=== PATIENT | female | born 1965 | race African-American/Black ===

== ENCOUNTER 2019-01-03 22:05 | Emergency (ER) | payer SELFPAY ==
[2019-01-03 22:17] VITALS: BP 127/71; PULSE 80; TEMP 98.2; BMI 30.9
[2019-01-03] MEDS ORDERED: KETOROLAC TROMETHAMINE 30 MG/1 ML VIAL IM ONE (23:26)
--- NOTE | 2019-01-03 23:29 | PDOC ---
History of Present Illness - General Chief Complaint: Back Pain Stated Complaint: BACK PAINS Time Seen by Provider: 01/03/19 22:41 History Source: Patient Exam Limitations: No Limitations - History of Present Illness Initial Comments: 01/03/19 23:26 HISTORY OF PRESENT ILLNESS: This is a 53-year-old woman past medical history of hypothyroidism who presents emergency department for evaluation of upper back pain for the past 3 days. 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 Patient reports having symptoms starting on that same day. Patient has been using [id number] treatments which have helped alleviate her symptoms. Patient now has worsening upper back pain which worsens with cough and movement of her right arm. She denies any chest pain or shortness of breath. No recent travel. PAST MEDICAL HISTORY: see HPI SURGICAL HISTORY: Denies ALLERGIES: No known drug allergies REVIEW OF SYSTEMS General/Constitutional: Denies fever or chills. Denies weakness, weight change. HEENT: Denies change in vision. Denies ear pain or discharge. Denies sore throat. Cardiovascular: Denies chest pain or shortness of breath. Respiratory: Dry cough. Denies wheezing, or hemoptysis. Gastrointestinal: Denies nausea, vomiting, diarrhea or constipation. Denies rectal bleeding. Genitourinary: Denies dysuria, frequency, or change in urination. Musculoskeletal: Denies joint or muscle swelling or pain. Denies neck pain. (+) right upper back pain. Skin and breasts: Denies rash or easy bruising. Neurologic: Denies headache, vertigo, loss of consciousness, or loss of sensation. Psychiatric: Denies depression or anxiety. Endocrine: Denies increased thirst. Denies abnormal weight change. Hematologic/Lymphatic: Denies anemia, easy bleeding, or history of blood clots. Allergic/Immunologic: Denies hives or skin allergy. Denies latex allergy. PHYSICAL EXAM General Appearance: Well-appearing, appropriately dressed. No apparent distress , no intoxication. HEENT: EOMI, PERRLA, normal ENT inspection, normal voice, TMs normal, pharynx normal. No conjunctival pallor. No photophobia, scleral icterus. Neck: Supple. Trachea midline. No tenderness, rigidity, carotid bruit, stridor , lymphadenopathy, or thyromegaly. Respiratory/Chest: Lungs CTAB. No shortness of breath, chest tenderness, respiratory distress, accessory muscle use. No crackles, rales, rhonchi, stridor , wheezing, dullness Cardiovascular: RRR. S1, S2. No JVD, murmur, bradycardia, tachycardia. Vascular Pulses: Dorsalis-Pedis (R): 2+, Dorsalis-Pedis (L): 2+ Gastrointestinal/Abdominal: Normal bowel sounds. Abdomen soft, non-distended. No tenderness or rebound tenderness. No organomegaly, pulsatile mass, guarding, hernia, hepatomegaly, splenomegaly. Lymphatic: No adenopathy, tenderness. Musculoskeletal/Extremities: Normal inspection. FROM of all extremities, normal capillary refill. Pelvis Stable. No CVA tenderness. No tenderness to extremities, pedal edema, swelling, erythema or deformity. Palpable muscle spasm present to trapezius muscle over 8th ICS. Integumentary: Appropriate color, dry, warm. No cyanosis, erythema, jaundice or rash Neurologic: culinary arts teacher II-XII intact. Fully oriented, alert. Appropriate mood/affect. Motor strength 5/5. No appreciable EOM palsy, facial droop or sensory deficit. Past History - Past Medical History Allergies/Adverse Reactions: Allergies Allergy/AdvReac Type Severity Reaction Status Date / Time No Known Allergies Allergy Verified 01/03/19 22:16 Home Medications: Ambulatory Orders Methocarbamol [Robaxin -] 1,500 mg PO Q8H PRN #30 tablet 01/04/19 COPD: No Other medical history: denies - Immunization History Immunization Up to Date: Yes - Suicide/Smoking/Psychosocial Hx Smoking History: Current some day smoker Information on smoking cessation initiated: No Hx Alcohol Use: No Drug/Substance Use Hx: No *Physical Exam - Vital Signs Last Vital Signs Temp Pulse Resp BP Pulse Ox 98.2 F 80 20 127/71 99 01/03/19 22:14 01/03/19 22:14 01/03/19 22:14 01/03/19 22:14 01/03/19 22:14 Moderate Sedation - Procedure Monitoring Vital Signs: Procedure Monitoring Vital Signs Temperature 98.2 F 01/03/19 22:14 Pulse Rate 80 01/03/19 22:14 Respiratory Rate 20 01/03/19 22:14 Blood Pressure 127/71 01/03/19 22:14 O2 Sat by Pulse Oximetry (%) 99 02/10/19 22:14 Medical Decision Making - Medical Decision Making 01/03/19 23:29 A/P: 53-year-old woman with upper back pain and cough Lungs clear to auscultation bilaterally Palpable muscle spasm present in the trapezius muscle over the eighth intercostal space immediately lateral to spine Toradol 30 mg IM now Chest x-ray Reassess 01/04/19 00:21 Chest x-rays read by me: Angles clear. Cardiac silhouette is within normal limits. No focal consolidations or infiltrates are present. Discharge home with prescription for Robaxin. *DC/Admit/Observation/Transfer Diagnosis at time of Disposition: Back spasm - Discharge Dispostion Disposition: HOME Condition at time of disposition: Fair Decision to Admit order: No - Prescriptions Prescriptions: Methocarbamol [Robaxin -] 1,500 mg PO Q8H PRN #30 tablet PRN Reason: Back Pain - Referrals - Patient Instructions Additional Instructions: Rest, no heavy lifting or exercise until pain is resolved Hot soaks to neck and low back as often as possible/hot showers or Jacuzzis No massage or therapy until spasm is gone Continue naproxen 2-220 mg tablets every 12 hours for the next 3 days then as needed for pain and swelling Robaxin 1500mg every 8 hours as needed for spasm If not significant improvement within 24 hours with medication and rest regime, followup with private physician for change in medications and /or therapy. - Post Discharge Activity
[2019-01-04] MEDS ORDERED: KETOROLAC TROMETHAMINE 30 MG/1 ML VIAL ONE (00:37)
== END 2019-01-04 00:57 | disposition home or self-care (01) ==
LOC: JER 22:05 → JERFT 22:05 → JER 01-04 00:57
PROC: 3E0233Z Introduction of Anti-inflammatory into Muscle, Percutaneous Approach (ICD-10-PCS; principal; 2019-01-03)
DX: M62.830 Muscle spasm of back (principal); E03.9 Hypothyroidism, unspecified
CPT/HCPCS: 71046-TC-FY; 99282-25

== ENCOUNTER 2021-09-11 19:37 | Emergency (ER) | payer OTHER ==
[2021-09-11 19:49] VITALS: BP 129/70; PULSE 90; TEMP 98.9; BMI 35.5
== END 2021-09-11 23:30 | disposition home or self-care (01) ==
LOC: JER 19:37
DX: R05.9 Cough, unspecified (principal); J30.9 Allergic rhinitis, unspecified
CPT/HCPCS: 71046-TC-FY; 99283-25; C9803; U0003; U0005

== ENCOUNTER 2023-07-23 13:37 | Emergency (ER) | payer SELFPAY ==
[2023-07-23 13:50] VITALS: BP 145/79; PULSE 64; RESP 18; TEMP 98.9; BMI 30.7
[2023-07-23] MEDS ORDERED: KETOROLAC TROMETHAMINE 30 MG/1 ML VIAL IM ONE (15:02)
[2023-07-23] MEDS ORDERED: KETOROLAC TROMETHAMINE 30 MG/1 ML VIAL ONE (15:03)
== END 2023-07-23 15:30 | disposition home or self-care (01) ==
LOC: FER 13:37
PROC: 3E0233Z Introduction of Anti-inflammatory into Muscle, Percutaneous Approach (ICD-10-PCS; principal; 2023-07-23)
DX: M54.50 Low back pain, unspecified (principal); K62.89 Other specified diseases of anus and rectum; K64.8 Other hemorrhoids; M62.830 Muscle spasm of back
CPT/HCPCS: 99284-25

== ENCOUNTER 2024-09-22 10:50 | Emergency (ER) | payer OTHER ==
[2024-09-22 11:00] VITALS: BP 120/79; PULSE 70; RESP 16; TEMP 98.2; BMI 30.7
== END 2024-09-22 13:05 | disposition home or self-care (01) ==
LOC: JERFT 10:50
DX: M54.41 Lumbago with sciatica, right side (principal)
CPT/HCPCS: 99283-25